=== PATIENT | male | born 1925 | race Caucasian/White ===

== ENCOUNTER 2017-01-27 16:27 | Inpatient (IN) | payer OTHER, MEDICAID ==
[~2017-01-27] VITALS: Ht 185.4 cm; Wt 65.8 kg
[2017-01-27 16:32] VITALS: BP_SYST 132
[2017-01-27 17:09] LABS: BASOPHILS % (AUTO) 0.4 % (0.0-2.0); EOSINOPHILS % (AUTO) 0.1 % (0.0-4.0); LYMPHOCYTES # (AUTO) 0.8 K/uL (1.0-5.5); MEAN CORPUSCULAR HEMOGLOBIN 29 pg (27-31); MEAN CORPUSCULAR HGB CONC 32 % (32-36); MEAN CORPUSCULAR VOLUME 90 fL (79.0-98.0); MONOCYTES # (AUTO) 0.6 K/uL (0.0-1.0); MONOCYTES % (AUTO) 4.7 % (1.7-9.3); NEUTROPHILS # (AUTO) 10.7 K/uL (1.8-7.7); NEUTROPHILS % (AUTO) 87.8 % (40.0-70.0); PLATELET COUNT (AUTO) 361 K/uL (130-430); RED BLOOD CELL COUNT(AUTO) 2.44 MIL/uL (4.2-6.2); RED CELL DISTRIBUTION WIDTH 15.1 % (9.0-15.0); WHITE BLOOD COUNT (AUTO) 12.1 K/uL (4.8-10.8)
[2017-01-27 17:15] LABS: ANION GAP 10 (5-15); CALCIUM 9.5 mg/dL (8.4-11.0); CHLORIDE 100 mmol/L (98-107); CREATININE 1.76 mg/dL (0.55-1.30); GLUCOSE 120 mg/dL (70-99); SODIUM SERUM 137 mmol/L (136-145); UREA NITROGEN, BLOOD 37 mg/dL (8-21)
[2017-01-27 17:19] LABS: INR 1.1 (0.80-1.20); PROTHROMBIN TIME 11.6 SECS (9.5-12.5)
[2017-01-27 17:20] LABS: ALANINE AMINOTRANSFERASE 62 U/L (12-78); ALBUMIN 3.3 g/dL (3.4-4.8); ASPARTATE AMINOTRANSFERASE 71 U/L (10-37); TOTAL BILIRUBIN 0.4 mg/dL (0.0-1.0)
[2017-01-27] MEDS ORDERED: KCL 20 mEq in D5/0.45NS 1000mL 1,000 ML IV ONE (18:15)
[2017-01-27] MEDS ORDERED: PANTOPRAZOLE SODIUM 40 MG/VIAL (PROTONIX) IVP ONE (18:15)
[2017-01-27] MEDS ORDERED: MAGN400O4 PO (18:27)
[2017-01-27] MEDS ORDERED: ASCO500T20 PO (18:27)
[2017-01-27] MEDS ORDERED: DULR10 RC (18:27)
[2017-01-27] MEDS ORDERED: TAMS-11 PO (18:27)
[2017-01-27] MEDS ORDERED: NA P133E41 RC (18:27)
[2017-01-27] MEDS ORDERED: ZIN220 PO (18:27)
[2017-01-27] MEDS ORDERED: ACET325T53 PO (18:27)
[2017-01-27] MEDS ORDERED: METO-306 PO (18:27)
[2017-01-27] MEDS ORDERED: FERR-57 PO (18:27)
[2017-01-27] MEDS ORDERED: DOCU-144 PO (18:27)
[2017-01-27] MEDS ORDERED: LEVA1.25 NEB (18:27)
[2017-01-27] MEDS ORDERED: CLOP75TA2 PO (18:27)
[2017-01-27] MEDS ORDERED: NOR10 PO (18:27)
[2017-01-27] MEDS ORDERED: SENN-153 PO (18:27)
[2017-01-27] MEDS ORDERED: ASA81 PO (18:27)
[2017-01-27] MEDS ORDERED: CRAN200C PO (18:27)
[2017-01-27] MEDS ORDERED: ACETAMINOPHEN 325 MG TABLET PO PRN (19:00)
[2017-01-27] MEDS ORDERED: BISACODYL 10 MG/SUPPOSITORY RC PRN (19:00)
[2017-01-27] MEDS ORDERED: NA PHOS,M-B/NA PHOS,DI-BA 118 ML (FLEET ENEMA) RC PRN (19:00)
[2017-01-27] MEDS ORDERED: LevALBUTEROL HCL 1.25 MG/0.5 ML *CONC.* VIAL.NEB (XOPENEX CONC.) INH PRN (19:00)
[2017-01-27] MEDS ORDERED: ONDANSETRON HCL 4 MG/2 ML VIAL IVP PRN (19:00)
[2017-01-27 19:24] VITALS: BP_SYST 151
[2017-01-27] MEDS: LevALBUTEROL HCL 1.25 MG/0.5 ML *CONC.* VIAL.NEB (XOPENEX CONC.) INH SCH (20:14)
[2017-01-27 20:15] VITALS: BP_SYST 151
[2017-01-27] MEDS: DOCUSATE SODIUM 100 MG CAPSULE PO SCH (21:39)
[2017-01-27] MEDS: PANTOPRAZOLE SODIUM 40 MG/VIAL (PROTONIX) IVP SCH (21:39)
[2017-01-27] MEDS: METOPROLOL SUCCINATE 50 MG TAB.SR.24H (TOPROL XL) PO SCH (21:40)
[2017-01-27] MEDS: TAMSULOSIN HCL 0.4 MG CAP PO SCH (21:40)
[2017-01-27] MEDS: SENNOSIDES 8.6 MG TABLET PO SCH (21:41)
[2017-01-27] MEDS: ALPRAZolam 0.25 MG TABLET PO PRN (23:23)
[2017-01-27 23:36] VITALS: BP_SYST 161
[2017-01-27] MEDS ORDERED: LORazepam 2 MG/ML VIAL IM PRN (23:45)
[2017-01-28] MEDS: ALPRAZolam 0.25 MG TABLET PO PRN ×3 (00:02→20:09)
[2017-01-28] MEDS ORDERED: methylPREDNISolone SOD SUCC/PF 62.5 MG/ML VIAL ONE (00:10)
[2017-01-28] MEDS ORDERED: LORazepam 2 MG/ML VIAL ONE (00:10)
[2017-01-28 03:54] VITALS: BP_SYST 161
[2017-01-28] MEDS: methylPREDNISolone SOD SUCC/PF 62.5 MG/ML VIAL IVP SCH ×7 (03:54→21:55)
[2017-01-28 08:52] LABS: HEMATOCRIT 29.3 % (36-54); HEMOGLOBIN 9.6 g/dL (14.0-18.0); LYMPHOCYTES # (AUTO) 0.2 K/uL (1.0-5.5); LYMPHOCYTES % (AUTO) 2.1 % (20.5-51.5); MEAN CORPUSCULAR HEMOGLOBIN 30 pg (27-31); MEAN CORPUSCULAR HGB CONC 33 % (32-36); MEAN CORPUSCULAR VOLUME 90 fL (79.0-98.0); MONOCYTES % (AUTO) 0.2 % (1.7-9.3); NEUTROPHILS # (AUTO) 10.4 K/uL (1.8-7.7); NEUTROPHILS % (AUTO) 97.7 % (40.0-70.0); PLATELET COUNT (AUTO) 296 K/uL (130-430); RED BLOOD CELL COUNT(AUTO) 3.26 MIL/uL (4.2-6.2); RED CELL DISTRIBUTION WIDTH 14.5 % (9.0-15.0); WHITE BLOOD COUNT (AUTO) 10.6 K/uL (4.8-10.8)
[2017-01-28] MEDS: DOCUSATE SODIUM 100 MG CAPSULE PO SCH ×2 (09:00→20:36)
[2017-01-28] MEDS: ASCORBIC ACID 500 MG TABLET PO SCH (09:00)
[2017-01-28] MEDS: MILK OF MAGNESIA 30 ML UDC PO SCH (09:00)
[2017-01-28 09:06] LABS: ANION GAP 10 (5-15); CALCIUM 8.8 mg/dL (8.4-11.0); CHLORIDE 102 mmol/L (98-107); CREATININE 1.64 mg/dL (0.55-1.30); GLUCOSE 167 mg/dL (70-99); POTASSIUM 3.9 mmol/L (3.5-5.1); SODIUM SERUM 140 mmol/L (136-145); UREA NITROGEN, BLOOD 32 mg/dL (8-21)
[2017-01-28] MEDS: METOPROLOL SUCCINATE 50 MG TAB.SR.24H (TOPROL XL) PO SCH ×2 (10:43→20:35)
[2017-01-28] MEDS: PANTOPRAZOLE SODIUM 40 MG/VIAL (PROTONIX) IVP SCH ×2 (10:43→20:09)
[2017-01-28] MEDS: LevALBUTEROL HCL 1.25 MG/0.5 ML *CONC.* VIAL.NEB (XOPENEX CONC.) INH SCH ×3 (11:31→23:31)
[2017-01-28] MEDS ORDERED: MEPERIDINE HCL/PF 25 MG/ML DISP.SYRIN ONE ×2 (11:32)
[2017-01-28] MEDS ORDERED: MIDAZOLAM HCL 5 MG/5 ML VIAL ONE (11:33)
[2017-01-28] MEDS ORDERED: SIMETHICONE 40 MG/0.6 ML ML ONE (11:33)
[2017-01-28 11:53] VITALS: BP_SYST 170
[2017-01-28 12:23] VITALS: BP_SYST 158
[2017-01-28 15:22] LABS: BILIRUBIN,URINE NEGATIVE (NEGATIVE); BLOOD, URINE NEGATIVE (NEGATIVE); CLARITY/URINE CLEAR (CLEAR); COLOR,URINE YELLOW (YELLOW); GLUCOSE,URINE NEGATIVE (NEGATIVE); KETONES,URINE NEGATIVE (NEGATIVE); LEUKOCYTE ESTERASE ,URINE NEGATIVE (NEGATIVE); NITRITE, URINE NEGATIVE (NEGATIVE); PROTEIN URINE TRACE (NEGATIVE); UROBILINOGEN,URINE 0.2 (0.2-1.0)
[2017-01-28 15:54] LABS: BACTERIA,URINE FEW /HPF (None Seen); HYALINE CASTS, URINE 0-1 /LPF (None Seen); RBC,URINE 0-3 /HPF (0-3); URINE AMORPHOUS URATE 1+ /HPF (None Seen)
[2017-01-28 16:38] VITALS: BP_SYST 148
[2017-01-28] MEDS: cefTRIAXone 1 GM in D5W 50 ML IV SCH (17:48)
[2017-01-28] MEDS: LORazepam 2 MG/ML VIAL IVP PRN ×2 (17:48→23:51)
[2017-01-28 19:30] VITALS: BP_SYST 162
[2017-01-28] MEDS: SENNOSIDES 8.6 MG TABLET PO SCH (20:35)
[2017-01-28] MEDS: TAMSULOSIN HCL 0.4 MG CAP PO SCH (20:35)
[2017-01-28 22:59] VITALS: BP_SYST 145
[2017-01-29] VITALS (7 sets, daily range): BP systolic 147–156
[2017-01-29] MEDS: methylPREDNISolone SOD SUCC/PF 62.5 MG/ML VIAL IVP SCH ×5 (02:42→21:19)
[2017-01-29] MEDS: LevALBUTEROL HCL 1.25 MG/0.5 ML *CONC.* VIAL.NEB (XOPENEX CONC.) INH SCH ×2 (08:06→14:29)
[2017-01-29 08:33] LABS: ANION GAP 4 (5-15); CALCIUM 9.1 mg/dL (8.4-11.0); CHLORIDE 105 mmol/L (98-107); CREATININE 1.73 mg/dL (0.55-1.30); GLUCOSE 145 mg/dL (70-99); POTASSIUM 4.8 mmol/L (3.5-5.1); SODIUM SERUM 140 mmol/L (136-145); UREA NITROGEN, BLOOD 41 mg/dL (8-21)
[2017-01-29 08:37] LABS: BASOPHILS # (AUTO) 0.1 K/uL (0.0-0.2); BASOPHILS % (AUTO) 0.4 % (0.0-2.0); HEMATOCRIT 28.4 % (36-54); HEMOGLOBIN 9.4 g/dL (14.0-18.0); LYMPHOCYTES # (AUTO) 0.2 K/uL (1.0-5.5); LYMPHOCYTES % (AUTO) 1.3 % (20.5-51.5); MEAN CORPUSCULAR HEMOGLOBIN 30 pg (27-31); MEAN CORPUSCULAR HGB CONC 33 % (32-36); MEAN CORPUSCULAR VOLUME 89 fL (79.0-98.0); MONOCYTES # (AUTO) 0.1 K/uL (0.0-1.0); MONOCYTES % (AUTO) 0.9 % (1.7-9.3); NEUTROPHILS # (AUTO) 12.2 K/uL (1.8-7.7); NEUTROPHILS % (AUTO) 97.4 % (40.0-70.0); PLATELET COUNT (AUTO) 297 K/uL (130-430); RED BLOOD CELL COUNT(AUTO) 3.18 MIL/uL (4.2-6.2); RED CELL DISTRIBUTION WIDTH 15.4 % (9.0-15.0); WHITE BLOOD COUNT (AUTO) 12.6 K/uL (4.8-10.8)
[2017-01-29] MEDS: PANTOPRAZOLE SODIUM 40 MG/VIAL (PROTONIX) IVP SCH ×2 (09:00→21:19)
[2017-01-29] MEDS: MILK OF MAGNESIA 30 ML UDC PO SCH (09:00)
[2017-01-29] MEDS: ASCORBIC ACID 500 MG TABLET PO SCH (09:00)
[2017-01-29] MEDS: DOCUSATE SODIUM 100 MG CAPSULE PO SCH ×2 (09:00→20:25)
[2017-01-29] MEDS ORDERED: HALOPERIDOL LACTATE 5 MG/ML VIAL IM ONE (10:45)
[2017-01-29] MEDS ORDERED: FUROSEMIDE 20 MG/2 ML VIAL IVP ONE (16:30)
[2017-01-29] MEDS: cefTRIAXone 1 GM in D5W 50 ML IV SCH (17:32)
[2017-01-29] MEDS: SENNOSIDES 8.6 MG TABLET PO SCH (20:26)
[2017-01-29] MEDS: TAMSULOSIN HCL 0.4 MG CAP PO SCH (20:26)
[2017-01-30] MEDS: LevALBUTEROL HCL 1.25 MG/0.5 ML *CONC.* VIAL.NEB (XOPENEX CONC.) INH SCH ×3 (00:04→16:01)
[2017-01-30] MEDS: LORazepam 2 MG/ML VIAL IVP PRN ×3 (01:17→22:43)
[2017-01-30] MEDS: methylPREDNISolone SOD SUCC/PF 62.5 MG/ML VIAL IVP SCH ×7 (01:18→22:42)
[2017-01-30 05:40] VITALS: BP_SYST 148
[2017-01-30 06:30] LABS: ANION GAP 9 (5-15); CALCIUM 8.8 mg/dL (8.4-11.0); CHLORIDE 105 mmol/L (98-107); CREATININE 1.85 mg/dL (0.55-1.30); GLUCOSE 160 mg/dL (70-99); POTASSIUM 4.9 mmol/L (3.5-5.1); SODIUM SERUM 145 mmol/L (136-145); UREA NITROGEN, BLOOD 50 mg/dL (8-21)
[2017-01-30 06:33] LABS: BASOPHILS % (AUTO) 0.1 % (0.0-2.0); HEMATOCRIT 29.5 % (36-54); HEMOGLOBIN 9.3 g/dL (14.0-18.0); LYMPHOCYTES # (AUTO) 0.3 K/uL (1.0-5.5); LYMPHOCYTES % (AUTO) 2.1 % (20.5-51.5); MEAN CORPUSCULAR HEMOGLOBIN 29 pg (27-31); MEAN CORPUSCULAR HGB CONC 32 % (32-36); MEAN CORPUSCULAR VOLUME 91 fL (79.0-98.0); MONOCYTES # (AUTO) 0.3 K/uL (0.0-1.0); MONOCYTES % (AUTO) 2.3 % (1.7-9.3); NEUTROPHILS # (AUTO) 11.9 K/uL (1.8-7.7); NEUTROPHILS % (AUTO) 95.5 % (40.0-70.0); PLATELET COUNT (AUTO) 312 K/uL (130-430); RED BLOOD CELL COUNT(AUTO) 3.23 MIL/uL (4.2-6.2); RED CELL DISTRIBUTION WIDTH 15.6 % (9.0-15.0); WHITE BLOOD COUNT (AUTO) 12.5 K/uL (4.8-10.8)
[2017-01-30 06:47] LABS: ALANINE AMINOTRANSFERASE 44 U/L (12-78); ALBUMIN 3.3 g/dL (3.4-4.8); ASPARTATE AMINOTRANSFERASE 33 U/L (10-37); TOTAL BILIRUBIN 0.3 mg/dL (0.0-1.0)
[2017-01-30 07:45] VITALS: BP_SYST 153
[2017-01-30] MEDS: PANTOPRAZOLE SODIUM 40 MG/VIAL (PROTONIX) IVP SCH ×2 (08:35→20:57)
[2017-01-30] MEDS: MILK OF MAGNESIA 30 ML UDC PO SCH (09:00)
[2017-01-30] MEDS: ASCORBIC ACID 500 MG TABLET PO SCH (09:00)
[2017-01-30] MEDS: DOCUSATE SODIUM 100 MG CAPSULE PO SCH ×2 (09:00→20:57)
[2017-01-30 12:05] VITALS: BP_SYST 149
[2017-01-30] MEDS: MORPHINE 2 MG/ML INJ. SYRINGE IVP PRN ×2 (12:38→21:12)
[2017-01-30 16:00] VITALS: BP_SYST 159
[2017-01-30 16:21] VITALS: BP_SYST 159
[2017-01-30] MEDS: cefTRIAXone 1 GM in D5W 50 ML IV SCH (17:04)
[2017-01-30 20:30] VITALS: BP_SYST 146
[2017-01-30] MEDS: TAMSULOSIN HCL 0.4 MG CAP PO SCH (20:58)
[2017-01-30] MEDS: SENNOSIDES 8.6 MG TABLET PO SCH (20:58)
[2017-01-31 01:19] VITALS: BP_SYST 126
[2017-01-31] MEDS: LevALBUTEROL HCL 1.25 MG/0.5 ML *CONC.* VIAL.NEB (XOPENEX CONC.) INH SCH ×2 (01:27→08:49)
[2017-01-31] MEDS: methylPREDNISolone SOD SUCC/PF 62.5 MG/ML VIAL IVP SCH ×3 (02:30→11:17)
[2017-01-31] MEDS: MORPHINE 2 MG/ML INJ. SYRINGE IVP PRN (02:30)
[2017-01-31 04:02] VITALS: BP_SYST 107
[2017-01-31] MEDS: LORazepam 2 MG/ML VIAL IVP PRN (04:45)
[2017-01-31 07:43] VITALS: BP_SYST 106
[2017-01-31] MEDS: PANTOPRAZOLE SODIUM 40 MG/VIAL (PROTONIX) IVP SCH (08:39)
[2017-01-31 11:47] VITALS: BP_SYST 128
[2017-01-31] MEDS ORDERED: FUROSEMIDE 20 MG/2 ML VIAL IVP ONE (12:45)
[2017-01-31] MEDS ORDERED: ACETAMINOPHEN 650 MG SUPP.RECT RC PRN (13:15)
[2017-01-31] MEDS ORDERED: MORPHINE 2 MG/ML INJ. SYRINGE IVP PRN (13:15)
[2017-01-31] MEDS ORDERED: LORazepam 2 MG/ML VIAL IVP PRN (13:15)
[2017-01-31] MEDS ORDERED: methylPREDNISolone SOD SUCC/PF 62.5 MG/ML VIAL IVP SCH (18:00)
== END 2017-01-31 13:51 | disposition expired | DRG 177 ==
LOC: SED 16:27 → STU 18:32
PROVIDERS: ADMIT Family Medicine; ATTEND Family Medicine
PROC: 30233N1 Transfusion of Nonautologous Red Blood Cells into Peripheral Vein, Percutaneous Approach (ICD-10-PCS; principal; 2017-01-28)
DX: J69.0 Pneumonitis due to inhalation of food and vomit (principal); J96.91 Respiratory failure, unspecified with hypoxia; I50.43 Acute on chronic combined systolic (congestive) and diastolic (congestive) heart failure; G93.41 Metabolic encephalopathy; N17.9 Acute kidney failure, unspecified; E86.0 Dehydration; E11.22 Type 2 diabetes mellitus with diabetic chronic kidney disease; I48.2 Chronic atrial fibrillation; E11.51 Type 2 diabetes mellitus with diabetic peripheral angiopathy without gangrene; K92.2 Gastrointestinal hemorrhage, unspecified; D62 Acute posthemorrhagic anemia; I24.9 Acute ischemic heart disease, unspecified; J44.1 Chronic obstructive pulmonary disease with (acute) exacerbation; I13.0 Hypertensive heart and chronic kidney disease with heart failure and stage 1 through stage 4 chronic kidney disease, or unspecified chronic kidney disease; Z66 Do not resuscitate; J44.9 Chronic obstructive pulmonary disease, unspecified; F03.90 Unspecified dementia, unspecified severity, without behavioral disturbance, psychotic disturbance, mood disturbance, and anxiety; I25.10 Atherosclerotic heart disease of native coronary artery without angina pectoris; N18.9 Chronic kidney disease, unspecified; N40.0 Benign prostatic hyperplasia without lower urinary tract symptoms; K59.00 Constipation, unspecified; R13.10 Dysphagia, unspecified; I25.2 Old myocardial infarction; Z87.891 Personal history of nicotine dependence
CPT/HCPCS: 36415; 36600; 71010; 80048; 80053; 81000-TC; 82272; 82550-TC; 82803-TC; 83880; 84484; 85025; 85610-TC; 85730-TC; 86886; 86900; 86901; 86920; 87081; 92610-GN; 93005; 93306; 94640; 94760; 96374; 99291; C9113; J0696; J1940; J2060; J2175; J2250; J2270; J2930; J7050; J7060; P9021